=== PATIENT | male | born 1985 | race Caucasian/White ===

== ENCOUNTER 2016-12-14 14:58 | Emergency (ER) | payer OTHER ==
[2016-12-14 15:05] VITALS: BP 141/81
[2016-12-14 15:38] LABS: BASO # 0.1 x10^3/uL (0.0-0.2); BASO % 1 % (0-3); EOS # 0.1 x10^3/uL (0.0-0.7); EOS % 1 % (0-3); HEMATOCRIT 44.5 % (39.0-53.0); HEMOGLOBIN 14.9 g/dL (13.0-17.5); LYMPH % 15 % (24-48); MEAN CORPUSCULAR HEMOGLOBIN 32 pg (25-35); MEAN CORPUSCULAR HGB CONC 34 g/dL (31-37); MEAN CORPUSCULAR VOLUME 95 fL (79-100); MONO # 0.7 x10^3/uL (0.0-1.1); MONO % 5 % (0-9); NEUT # 10.8 x10^3uL (1.8-7.7); NEUT % 79 % (31-73); PLATELET COUNT 248 x10^3/uL (140-400); RED BLOOD COUNT 4.66 x10^6/uL (4.30-5.70); RED CELL DISTRIBUTION WIDTH 13.7 % (11.5-14.5); WHITE BLOOD COUNT 13.8 x10^3/uL (4.0-11.0)
[2016-12-14] MEDS ORDERED: IV NORMAL SALINE 1,000ML 1,000 ML IV ONE (16:00)
[2016-12-14] MEDS ORDERED: HYDROmorphone PF 1 MG/ML DISP.SYRIN IV ONE (16:00)
[2016-12-14] MEDS ORDERED: ONDANSETRON PF 4 MG/2 ML VIAL. IV ONE (16:00)
[2016-12-14] MEDS ORDERED: PROMETHAZINE 25 MG in IV NORMAL SALINE 50ML 50 ML IV ONE (16:00)
[2016-12-14] MEDS ORDERED: IV NORMAL SALINE 50ML 50 ML ONE (16:02)
[2016-12-14] MEDS ORDERED: PROMETHAZINE 25 MG/ML VIAL IV ONE (16:02)
--- NOTE | 2016-12-14 16:19 | PHYS DOC ---
General Chief Complaint: NAUSEA/VOMITING/DIARRHEA Stated Complaint: VOMITING Time Seen by MD: 15:47 Source: patient Exam Limitations: no limitations Problems: History of Present Illness Initial Comments Patient is a 31-year-old male visiting locally from [facility] HIV positive complaining of nausea and vomiting. Patient states that he has frequent episodes of nausea and vomiting after taking his HIV medications, he states that's what happened today. He follows with an infectious disease dock out [place] and states his last viral load was undetectable. He has Zofran prescribed and tried taking it prior to arrival but states he kept throwing it up. He says he's had nausea vomiting and dry heaves for the past 10 hours and finally could not take it so he came to the emergency department for assistance. Currently he complains of a headache and dry mouth and dizziness when standing he denies any chest pain cough fever or trouble breathing. He states this is identical to his prior exacerbations of medication- induced nausea vomiting and is requesting no extensive workup be undertaken. He is actively retching as I tried to talk with him and he is agreeable to treatment with pain meds and antiemetics and I will recheck him shortly. ED vitals: 95.8, 61, 24, 141/81, 100% room air Timing/Duration: constant Severity: severe Modifying Factors: worse with medication Associated Symptoms: nausea/vomiting Allergies: Coded Allergies: bee venom protein (honey bee) (Verified Allergy, Severe, sob, 12/14/16) shellfish derived (Verified Allergy, Severe, sob, 12/14/16) Past Medical History Medical History: other (HIV, anxiety) Surgical History: noncontributory Social History Smoker: non-smoker Alcohol: none Drugs: marijuana Review of Systems Constitutional: denies chills, denies diaphoresis, denies fever, malaise Respiratory: denies cough, denies shortness of breath, denies wheezing Cardiovascular: denies chest pain (the EKG and labs and), denies palpitations, denies syncope Gastrointestinal: see HPI Genitourinary: denies dysuria, denies frequency, denies hematuria Musculoskeletal: denies back pain, denies joint swelling, denies neck pain Psychiatric/Neurological: see HPI, headache, denies numbness, denies paresthesia (physical), denies seizure Hematologic/Lymphatic: denies blood clots, denies easy bleeding, denies easy bruising (is a 15 of them missing by) Physical Exam General Appearance: moderate distress (retching), thin Eyes: bilateral eye normal inspection, bilateral eye PERRL, bilateral eye EOMI Ear, Nose, Throat: hearing grossly normal, normal ENT inspection, normal pharynx (dry membranes) Neck: non-tender, supple Respiratory: normal breath sounds, no respiratory distress Cardiovascular: normal peripheral pulses, regular rate, rhythm Orders, Labs, Meds 8 mg Zofran IV, Dilaudid 0.5 mg IV, and a 1 L normal saline IV bolus initiated upon patient arrival. I-STAT BMP: Potassium 3.4 otherwise unremarkable CBC leukocytosis 13,000 likely physiologic response to emesis 1738: Patient rechecked his headache has resolved with IV fluids and Dilaudid his nausea has resolved with Phenergan and Zofran IV. He is requesting discharge , he states that he feels much better. I discussed Phenergan suppositories and Zofran ODT as well as taking them one hour prior to his HIV medications to prevent further GI upset. He expressed agreement and understanding of treatment plan. Departure Time of Disposition: 17:34 Disposition: 01 HOME, SELF-CARE Diagnosis: Drug reaction, Dehydration, hypokalemia Patient Instructions: Dehydration, Adult, Idgy-in-Oaxl, Drug Reaction, GI Intolerance Additional Instructions: Aggressive hydration with Gatorade and water. Eat one banana daily to supplement your potassium. Take medications with one hour prior to your HIV medications to try to prevent nausea and vomiting. Prescription: Zofran ODT, Phenergan suppositories Follow-up with your doctor next week for recheck. Return to the ED with new or changing symptoms. HALIMA WILKINS DO Dec 14, 2016 16:19
[2016-12-14 16:48] LABS: ALBUMIN 4.1 g/dL (3.4-5.0); ALBUMIN/GLOBULIN RATIO 1.4 (1.0-1.7); CALCIUM 8.8 mg/dL (8.5-10.1); CREATININE 0.8 mg/dL (0.7-1.3); GFR 113.5; POTASSIUM 3.4 mmol/L (3.5-5.1); TOTAL BILIRUBIN 0.3 mg/dL (0.2-1.0); TOTAL PROTEIN 7.1 g/dL (6.4-8.2)
[2016-12-14] MEDS ORDERED: POTASSIUM CHLORIDE 20 MEQ/15 ML ORAL LIQUID. PO ONE (17:15)
[2016-12-14] MEDS ORDERED: ONDA4TAB10 PO (17:34)
[2016-12-14] MEDS ORDERED: PROM50SU6 RC (17:34)
== END 2016-12-14 17:55 | disposition home or self-care (01) ==
LOC: ER 14:58
DX: E86.0 Dehydration (principal); T50.995A Adverse effect of other drugs, medicaments and biological substances, initial encounter; Z21 Asymptomatic human immunodeficiency virus [HIV] infection status; E87.6 Hypokalemia; F41.9 Anxiety disorder, unspecified; Z91.030 Bee allergy status; Z91.013 Allergy to seafood; Y92.89 Other specified places as the place of occurrence of the external cause
CPT/HCPCS: 36415; 80053; 85025; 96365; 96375; 99284; J1170; J2405; J2550; J7030